=== PATIENT | female | born 1990 | race African-American/Black ===

== ENCOUNTER 2016-06-20 23:00 | Emergency (ER) | payer OTHER ==
[~2016-06-20] VITALS: Ht 154.9 cm; Wt 68.0 kg
[~2016-06-20 23:00] MED LIST: MACR100C PO; NAPR500 PO; NAPR550 PO; TYLE3 PO
[2016-06-20 23:01] VITALS: BP 139/82; PULSE 81; RESP 16; TEMP 98.5; O2SAT 99
--- NOTE | 2016-06-20 23:53 | PD ---
HPI Chief Complaint: Abdominal Pain Time Seen by Provider: 23:48 Travel History International Travel<30 days: No Contact w/Intl Traveler<30days: No Traveled to known affect area: No History of Present Illness HPI 26-year-old female here for evaluation of lower back pain. The patient reports having lower back pain for a month, however the pain felt worse today and was sharp, so she decided to present to the emergency department for evaluation. She has not seen anyone for her back pain in the last month. She reports heavy lifting at work. No urinary symptoms. No vaginal bleeding or discharge. She does not believe she is . Pain is moderate, midline, worse with movement and palpation. She denies fevers or chills. No history of IVDU. No bowel or bladder retention or incontinence. She is currently on her menstrual period. [facility] Past Medical History Medical History: Denies Significant Hx Diminished Hearing: No Tetanus Vaccination: < 5 Years Influenza Vaccination: No ?: Not LMP: NOW : 1 Para: 1 Past Surgical History Surgical History: No Previous Surgery Social History Alcohol Use: No Tobacco Use: No Substance Use: No Allergies-Medications (Allergen,Severity, Reaction): Coded Allergies: No Known Allergies (Verified , 06/20/16) Reported Meds & Prescriptions Reported Meds & Active Scripts Active No Active Prescriptions or Reported Medications Review of Systems Except as stated in HPI: all other systems reviewed are Neg Physical Exam Narrative GENERAL: Well-developed, well-nourished, overweight, comfortable, no acute distress. SKIN: Warm and dry. No rash. HEAD: Atraumatic. Normocephalic. EYES: Pupils equal and round. No scleral icterus. No injection or drainage. ENT: Mucous membranes pink and moist. NECK: Trachea midline. No JVD. No midline cervical spine step-off or tenderness. CARDIOVASCULAR: Regular rate and rhythm. RESPIRATORY: No accessory muscle use. Clear to auscultation. Breath sounds equal bilaterally. GASTROINTESTINAL: Abdomen soft, non-tender, nondistended. DIGITAL ANALYST: Exam performed in the presence of a female nurse. Normal external genitalia. Scant blood in vaginal vault coming from vaginal os. No vaginal or cervical lacerations. Normal cervix. No CMT. No adnexal masses or tenderness. MUSCULOSKELETAL: No obvious deformities. No clubbing. No cyanosis. No edema. No CVA tenderness. Mild midline lumbar spine tenderness without step-off. NEUROLOGICAL: Awake and alert. No obvious cranial nerve deficits. Motor grossly within normal limits. Normal speech. PSYCHIATRIC: Appropriate mood and affect; insight and judgment normal. Data Data Last Documented VS Vital Signs Date Time Temp Pulse Resp B/P Pulse Ox O2 Delivery O2 Flow Rate FiO2 06/20/16 23:01 98.5 81 16 139/82 99 Room Air Orders Urinalysis - C+S If Indicated (06/20/16 23:50) Ed Urine Pregnancytest Poc (06/20/16 23:50) Gc And Chlamydia Pcr (06/20/16 23:50) Wet Prep Profile (06/20/16 23:50) Metronidazole (Flagyl) (06/21/16 00:30) Ketorolac Inj (Toradol Inj) (06/21/16 00:30) Labs Laboratory Tests Test 06/20/16 06/20/16 23:50 23:59 Urine Color YELLOW Urine Turbidity CLEAR Urine pH 6.0 Urine Specific [place] 1.028 Urine Protein TRACE mg/dL Urine Glucose (UA) NEG mg/dL Urine Ketones NEG mg/dL Urine Occult Blood LARGE Urine Nitrite NEG Urine Bilirubin NEG Urine Urobilinogen 4.0 MG/DL Urine Leukocyte Esterase NEG Urine RBC /hpf Urine WBC 2 /hpf Urine Squamous Epithelial 1 /hpf Cells Urine Mucus FEW /lpf Microscopic Urinalysis Comment CULT NOT INDICATED Clue Cells (Wet Prep) PRESENT Vaginal Trichomonas (Wet Prep) NONE SEEN Vaginal Yeast (Wet Prep) NONE SEEN MDM Medical Decision Making Medical Screen Exam Complete: Yes Emergency Medical Condition: Yes Differential Diagnosis Musculoskeletal low back pain, UTI, pyelonephritis, BV, Trichomonas Narrative Course Vital signs show heart rate 81, blood pressure 139/82, pulse ox 99% on room air , oral temp of 98.5F. Urine is negative Wet prep is positive for clue cells, negative for yeast, negative for Trichomonas. The patient is complaining of midline lower back pain. She has no red flags for low back pain. No focal neurologic deficits. Normal muscle strength in bilateral lower extremities. Patient is currently on her menstrual period accounting for hematuria. This could also be causing her lower back pain. Also bacterial vaginosis could be causing her lower back pain. Signs and symptoms are not consistent with cord compression. She will be given Toradol here and will be started on Flagyl 500 mg twice a day. PMD follow-up this week. She was informed on when to return to the emergency department. She verbalizes understanding and agreement with plan. Diagnosis Primary Impression: Bacterial vaginosis Additional Impression: Low back pain Qualified Code: M54.5 - Midline low back pain without sciatica, unspecified chronicity Referrals: [facility] 3 days Additional Instructions: Follow-up with a recreational specialist or in the [facility] this week. Take antibiotic as prescribed. Return to the emergency department for worsening symptoms or any other concerns. Scripts Naproxen 500 Mg Job214 Mg PO BID 10 Days Ref 0 Prov:Prasad Dixon MD 06/21/16 Metronidazole (Flagyl)500 Mg Iig442 Mg PO BID 7 Days Ref 0 Prov:Prasad Dixon MD 06/21/16 Disposition: 01 DISCHARGE HOME Condition: Stable Prasad Dixon MD Jun 20, 2016 23:53
[2016-06-21 00:19] LABS: BLOOD, URINE LARGE (NEG); COMMENT (UR) CULT NOT INDICATED; CULTURE IF INDICATED CULT NOT INDICATED; GLUCOSE,URINE NEG (NEG); KETONE, URINE NEG (NEG); MUCUS URINE FEW /lpf (OCC); NITRITE,URINE NEG (NEG); SQUAMOUS EPITHELIAL CELL URINE 1 /hpf (0-5); URINE COLOR YELLOW (YELLW/STRAW)
[2016-06-21] MEDS ORDERED: NAPR500T PO (00:27)
[2016-06-21] MEDS ORDERED: METR-1 PO (00:27)
[2016-06-21] MEDS ORDERED: KETOROLAC TROMETHAMINE 30 MG/ML (IVP) VIAL IV PUSH ONE (00:30)
[2016-06-21] MEDS ORDERED: metroNIDAZOLE 500 MG TAB PO ONE (00:30)
[2016-06-21] MEDS ORDERED: KETOROLAC TROMETHAMINE 60 MG/2 ML (IM) VIAL IM ONE (00:30)
[2016-06-21 02:08] LABS: CHLAMYDIA PCR NOT DETECTED (NOT DETECT); NEISSERIA PCR DETECTED (NOT DETECT)
== END 2016-06-21 00:52 | disposition home or self-care (01) ==
LOC: NEPA 23:00
DX: N76.0 Acute vaginitis (principal)
CPT/HCPCS: 81001; 84703; 87210; 87491; 87591; 96372; 99283; J1885

== ENCOUNTER 2016-06-23 11:02 | Emergency (ER) | payer OTHER ==
[~2016-06-23] VITALS: Ht 154.9 cm; Wt 70.0 kg
[~2016-06-23 11:02] MED LIST changes: -MACR100C PO; +METR-1 PO; -NAPR500 PO; +NAPR500T PO; -NAPR550 PO; -TYLE3 PO
[2016-06-23 11:03] VITALS: BP 120/84; PULSE 74; RESP 20; TEMP 98; O2SAT 100
[2016-06-23] MEDS ORDERED: AZITHROMYCIN PWD FOR SUSP 1 GM PACKET PO ONE (12:15)
[2016-06-23] MEDS ORDERED: LIDOCAINE HCL 1% 50 ML VIAL IM ONE (12:15)
[2016-06-23] MEDS ORDERED: cefTRIAXone 250 MG VIAL IM ONE (12:15)
[2016-06-23] MEDS ORDERED: DOXY100T PO (12:26)
--- NOTE | 2016-06-23 12:26 | PD ---
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 Patient was seen in emergency room 2 days ago low back pain and vaginal bleeding. Patient was given prescription for Flagyl. Patient has been taking Flagyl as directed. Gonorrhea PCR result came back positive. Patient was advised to come back to the ED for evaluation. Patient states that she still had persistent low back pain with some vaginal spotting. Patient denies any vaginal discharge. Patient denies dysuria or frequency. Patient denies any fever chills. PFSH Past Medical History Medical History: Denies Significant Hx Diminished Hearing: No Influenza Vaccination: No ?: Not LMP: 02/22/17 : 1 Para: 1 Past Surgical History Surgical History: No Previous Surgery Social History Alcohol Use: No Tobacco Use: No Substance Use: No Allergies-Medications (Allergen,Severity, Reaction): Coded Allergies: No Known Allergies (Verified , 06/20/16) Reported Meds & Prescriptions Reported Meds & Active Scripts Active Naproxen 500 Mg Tab 500 Mg PO BID 10 Days Flagyl (Metronidazole) 500 Mg Tab 500 Mg PO BID 7 Days Review of Systems General / Constitutional: No: Fever Eyes: No: Visual changes HENT: No: Headaches Cardiovascular: No: Chest Pain or Discomfort Respiratory: No: Shortness of Breath Gastrointestinal: No: Abdominal Pain Genitourinary: No: Dysuria Musculoskeletal: No: Pain Skin: No Rash Neurologic: No: Weakness Psychiatric: No: Depression Endocrine: No: Polydipsia Hematologic/Lymphatic: No: Easy Bruising Physical Exam Narrative GENERAL: Well-nourished, well-developed patient. SKIN: Warm and dry. HEAD: Normocephalic. EYES: No scleral icterus. No injection or drainage. NECK: Supple, trachea midline. No JVD or lymphadenopathy. CARDIOVASCULAR: Regular rate and rhythm without murmurs, gallops, or rubs. RESPIRATORY: Breath sounds equal bilaterally. No accessory muscle use. GASTROINTESTINAL: Abdomen soft, non-tender, nondistended. MUSCULOSKELETAL: No cyanosis, or edema. BACK: Mild tenderness on palpation lumbar area, without obvious deformity. No CVA tenderness. Data Data Last Documented VS Vital Signs Date Time Temp Pulse Resp B/P Pulse Ox O2 Delivery O2 Flow Rate FiO2 06/23/16 11:18 88 17 06/23/16 11:03 98.0 120/84 100 Room Air Orders Azithromycin Powd Pack (Zithromax Powd P (06/23/16 12:15) Rocephin 250mg Vial Im X 1 (06/23/16 12:15) Lidocaine 1% Inj (50 Ml) (Xylocaine 1% I (06/23/16 12:15) MDM Medical Decision Making Medical Screen Exam Complete: Yes Emergency Medical Condition: Yes Medical Record Reviewed: Yes Differential Diagnosis Differential diagnosis including cervicitis, PID Narrative Course 36-year-old female back pain and positive gonorrhea PCR. Rocephin 250 mg IM. Zithromax 1 g by mouth. Diagnosis Primary Impression: PID (acute pelvic inflammatory disease) Patient Instructions: General Instructions Additional Instructions: Continue with Flagyl as directed. Doxycycline as directed. Follow-up with personal physician. Advised partner to be treated also. Med/Other Pt SpecificInfo: Prescription(s) given Scripts Doxycycline Hyclate 100 Mg [id number] Mg PO BID #14 TAB Prov:Lalit Olivier MD 06/23/16 Disposition: 01 DISCHARGE HOME Condition: Stable Lalit Olivier MD Jun 23, 2016 12:26
== END 2016-06-23 13:57 | disposition home or self-care (01) ==
LOC: NEPA 11:02
DX: N73.8 Other specified female pelvic inflammatory diseases (principal); B96.89 Other specified bacterial agents as the cause of diseases classified elsewhere; A54.9 Gonococcal infection, unspecified
CPT/HCPCS: 96372; 99283; J0696

== ENCOUNTER 2017-05-18 19:00 | Emergency (ER) | payer OTHER ==
[~2017-05-18] VITALS: Ht 154.9 cm; Wt 79.5 kg
[~2017-05-18 19:00] MED LIST changes: +DOXY100T PO; -NAPR500T PO; +NAPR500T2 PO
[2017-05-18 19:05] VITALS: BP 126/75; PULSE 89; RESP 16; TEMP 98.4; O2SAT 100
--- NOTE | 2017-05-20 13:44 | PD ---
Physical Exam Date Seen by Provider: May 18, 2017 Time Seen by Provider: 19:10 Narrative 26-year-old female presents to the emergency department for evaluation of body aches, cough for 3 days. Current pain is 2/10. Data Data Last Documented VS Vital Signs Date Time Temp Pulse Resp B/P (MAP) Pulse Ox O2 Delivery O2 Flow Rate FiO2 05/18/17 19:05 98.4 89 16 126/75 (92) 100 Room Air MDM Supervised Visit with AYUSH: No Narrative Course 26-year-old female presents to the emergency department for evaluation of cold symptoms for 3 days. Patient initially seen in triage. She left AGAINST MEDICAL ADVICE before she could be moved to medical bed. Diagnosis Primary Impression: Left against medical advice Disposition: 07 AGAINST MEDICAL ADVICE Nereida Benjamin May 20, 2017 13:44
== END 2017-05-18 22:51 | disposition left against medical advice (07) ==
LOC: NED 19:00
DX: R05 Cough (principal)
CPT/HCPCS: 99281

== ENCOUNTER 2017-07-15 19:33 | Emergency (ER) | payer OTHER ==
[2017-07-15 19:38] VITALS: BP 127/78; PULSE 81; RESP 20; TEMP 99.9
[2017-07-15 20:45] LABS: BILIRUBIN, URINE NEG (NEG); BLOOD, URINE TRACE (NEG); GLUCOSE,URINE NEG (NEG); KETONE, URINE NEG (NEG); NITRITE,URINE NEG (NEG); URINE COLOR OTHER (YELLW/STRAW); URINE LEUKOCYTE ESTERASE NEG (NEG)
[2017-07-15] MEDS ORDERED: NAPR500T2 PO (20:53)
--- NOTE | 2017-07-15 20:53 | PD ---
HPI Chief Complaint: Flank/Kidney Pain Time Seen by Provider: 20:08 Travel History International Travel<30 days: No Contact w/Intl Traveler<30days: No Traveled to known affect area: No History of Present Illness HPI Patient is a 27-year-old female presents emergency department for evaluation of right gluteal pain. Patient states this is gone on intermittently for the past week or so. States when it comes on very severe and sharp and right over her low back and the right gluteus, denies any nausea vomiting abdominal pain diarrhea constipation vaginal bleeding or vaginal discharge. She denies any saddle anesthesia, denies any difficulty with urination. She states currently the pain is nonexistent. She cannot think of any particular action which brings along her pain. States her pain is intermittent, for the past week, associated signs and symptoms as above, quality as above PFSH Past Medical History Medical History: Denies Significant Hx Diminished Hearing: No Influenza Vaccination: No ?: Not LMP: JULY 09 2017 : 1 Para: 1 Past Surgical History Surgical History: No Previous Surgery Social History Alcohol Use: No Tobacco Use: No Substance Use: No Allergies-Medications (Allergen,Severity, Reaction): Coded Allergies: No Known Allergies (Verified , 06/20/16) Reported Meds & Prescriptions Reported Meds & Active Scripts Active Naproxen 500 Mg Tab 500 Mg PO BID 10 Days Review of Systems Except as stated in HPI: all other systems reviewed are Neg Physical Exam Narrative GENERAL: Well-developed well-nourished no obvious distress SKIN: Warm and dry. HEAD: Normocephalic. Atrial EYES: No scleral icterus. No injection or drainage. NECK: Supple, trachea midline. No JVD or lymphadenopathy. CARDIOVASCULAR: Regular rate and rhythm without murmurs, gallops, or rubs. RESPIRATORY: Breath sounds equal bilaterally. No accessory muscle use. GASTROINTESTINAL: Abdomen soft, non-tender, nondistended. No rebound no percussive tenderness. MUSCULOSKELETAL: No cyanosis, or edema. Area with the patient identifies the pain has been coming on his right over the sacroiliac joint, there is no tenderness there now, no midline CT or L-spine tenderness, pelvis stable, BACK: Nontender without obvious deformity. No CVA tenderness. Data Data Last Documented VS Vital Signs Date Time Temp Pulse Resp B/P (MAP) Pulse Ox O2 Delivery O2 Flow Rate FiO2 07/15/17 21:06 97.8 78 18 113/78 (90) 97 Orders Orders Urinalysis - C+S If Indicated (07/15/17 20:28) Ed Discharge Order (07/15/17 20:53) Labs Laboratory Tests Test 07/15/17 20:35 Urine Collection Type CLEAN CATCH Urine Color OTHER Urine Turbidity CLEAR Urine pH 6.0 Urine Specific [place] LESS/EQUAL 1.005 Urine Protein NEG mg/dL Urine Glucose (UA) NEG mg/dL Urine Ketones NEG mg/dL Urine Occult Blood TRACE Urine Nitrite NEG Urine Bilirubin NEG Urine Urobilinogen 0.2 MG/DL Urine Leukocyte Esterase NEG Urine Squamous Epithelial Cells 0-5 /hpf Microscopic Urinalysis Comment CULT NOT INDICATED MDM Medical Decision Making Medical Screen Exam Complete: Yes Emergency Medical Condition: Yes Differential Diagnosis Sacroiliitis, low back pain, low back strain, fracture unlikely. Narrative Course Patient room to the emergency department, currently pain-free discussed the possibility of sacroiliitis with this patient. Discussed symptomatic management follow-up with a primary care physician and return to ED criteria. There is no indication further workup of this patient at this time. UA negative , urine test was negative in the emergency department Diagnosis Primary Impression: Low back pain Qualified Codes: M54.5 - Low back pain Patient Instructions: General Instructions, Sacroiliitis (ED) Med/Other Pt SpecificInfo: Prescription(s) given Scripts Naproxen (Naproxen) 500 Mg Tab 500 MG PO BID for 10 Days, TAB 0 Refills Prov: Dimas Diaz MD 07/15/17 Disposition: 01 DISCHARGE HOME Condition: Stable Dimas Diaz MD Jul 15, 2017 20:53
[2017-07-15 21:06] VITALS: BP 113/78; TEMP 97.8
[2017-07-15 21:20] LABS: SQUAMOUS EPITHELIAL CELL URINE 0-5 /hpf (0-5)
== END 2017-07-15 21:06 | disposition home or self-care (01) ==
LOC: PHED 19:33
DX: M54.5 Low back pain (principal)
CPT/HCPCS: 81001; 99283